=== PATIENT | female | born 1985 | race Two or more races ===

== ENCOUNTER 2017-09-21 11:57 | Emergency (ER) | payer BC ==
[~2017-09-21] VITALS: Ht 165.1 cm; Wt 61.2 kg
[2017-09-21 12:17] VITALS: BP 135/80
== END 2017-09-21 13:26 | disposition home or self-care (01) ==
LOC: ER 12:04
DX: L40.9 Psoriasis, unspecified (principal); F17.210 Nicotine dependence, cigarettes, uncomplicated; Z88.1 Allergy status to other antibiotic agents
CPT/HCPCS: 93005